=== PATIENT | female | born 1985 | race Caucasian/White ===

== ENCOUNTER 2022-11-15 14:21 | Outpatient (CLI) | payer SELFPAY | END 2022-11-15 14:22 | disposition home or self-care (01) | LOC: KYNREF 14:22 | PROVIDERS: PCP Nurse Practitioner Family; Visit Provider Nurse Practitioner Family | DX: R10.9 Unspecified abdominal pain (principal); R19.7 Diarrhea, unspecified; E03.9 Hypothyroidism, unspecified | CPT/HCPCS: 81015; 84443; 85025 ==

== ENCOUNTER 2022-11-19 14:49 | Outpatient (CLI) | payer SELFPAY ==
[2022-11-20 10:19] LABS: CDIFFEPI 027 PRESUMPTIVE NEGATIVE (Negative)
[2022-11-20 10:23] LABS: C.Difficile POSITIVE (Negative)
[2022-11-20 10:27] LABS: H pylori Ag Stool* POSITIVE (Negative)
[2022-11-26 05:37] LABS: Ova and Parasite, Fecal Negative (Negative)
== END 2022-11-19 14:50 | disposition home or self-care (01) ==
PROVIDERS: PCP Nurse Practitioner Family; Visit Provider Nurse Practitioner Family
DX: R10.9 Unspecified abdominal pain (principal); R14.0 Abdominal distension (gaseous); R19.7 Diarrhea, unspecified
CPT/HCPCS: 80053; 82150; 82784; 83516; 83690; 85025; 87045; 87046; 87177; 87209; 87338; 87427; 87493

== ENCOUNTER 2024-04-06 11:01 | Outpatient (CLI) | payer OTHER, SELFPAY ==
[2024-04-08 16:08] LABS: HPV Source Cervix; HPV, High Risk by TMA Not Detected
== END 2024-04-06 11:02 | disposition home or self-care (01) ==
PROVIDERS: PCP Nurse Practitioner Family; Visit Provider Nurse Practitioner Family
DX: E03.9 Hypothyroidism, unspecified (principal); R10.2 Pelvic and perineal pain; F32.A Depression, unspecified; Z12.4 Encounter for screening for malignant neoplasm of cervix; Z11.51 Encounter for screening for human papillomavirus (HPV)
CPT/HCPCS: 82306; 84439; 84443; 87624; 87625; 88141; 88142

== ENCOUNTER 2024-06-08 12:13 | Outpatient (CLI) | payer OTHER, SELFPAY | END 2024-06-08 12:14 | disposition home or self-care (01) | PROVIDERS: PCP Nurse Practitioner Family; Visit Provider Nurse Practitioner Family | DX: E28.2 Polycystic ovarian syndrome (principal); F41.1 Generalized anxiety disorder; F90.2 Attention-deficit hyperactivity disorder, combined type | CPT/HCPCS: 84443 ==